=== PATIENT | male | born 1995 | race Caucasian/White ===

== ENCOUNTER 2021-10-22 04:29 | Emergency (ER) | payer OTHER ==
[2021-10-22 05:00] LABS: BASOPHIL 0.3 % (0-2); EOSINOPHIL 1.5 % (0-5); HCT 48.3 % (42.0-52.0); HGB 16.5 g/dl (13.2-18.0); MCH 30.7 pg (25.0-31.0); MCHC 34.2 g/dL (32.0-36.0); MCV 89.8 fL (78.0-100.0); MONOCYTE 8.1 % (0-12); MPV 10.3 fL (6.0-9.5); NEUTROPHIL 58.9 % (41-80); NRBC 0; PLT 206 K/uL (150-400); RBC 5.38 M/uL (4.70-6.00); RDW 12.4 % (11.5-14.0); WBC 8.8 K/uL (4.0-10.5)
[2021-10-22 05:04] LABS: INR 1.15 (0.9-1.2); PROTHROMBIN TIME 14.1 SECONDS (11.8-13.4); PTT 26.4 SECONDS (24.4-34.7)
[2021-10-22 05:13] LABS: ALBUMIN 4.6 g/dL (3.4-5.0); BILIRUBIN - TOTAL 0.8 mg/dL (0.2-1.0); BUN/CREAT RATIO (CALC) 20.2 RATIO; CREATININE 1.09 mg/dL (0.67-1.17); GLOBULIN (CALCULATION) 3.2 g/dL; POTASSIUM 4.3 mmol/L (3.5-5.1); TOTAL PROTEIN 7.8 g/dL (6.4-8.2)
[2021-10-22] MEDS ORDERED: PROTONIX 40MG T40 MG PO (05:17)
[2021-10-22] MEDS ORDERED: CARAFATE S500 MG/TSP PO (05:18)
== END 2021-10-22 05:30 | disposition home or self-care (01) ==
LOC: FER 04:29
PROVIDERS: Emergency Medicine
DX: R07.2 Precordial pain (principal)
CPT/HCPCS: 36415; 71045; 80053; 84484; 85025; 85610; 85730; 93005